=== PATIENT | male | born 1965 | race Caucasian/White ===

== ENCOUNTER 2016-12-14 19:13 | Emergency (ER) | payer OTHER ==
[~2016-12-14] VITALS: Ht 175.3 cm; Wt 84.5 kg
[2016-12-14 19:21] VITALS: BP 126/86; PULSE 89; RESP 18; TEMP 98.2; O2SAT 98
[2016-12-14] MEDS ORDERED: SODIUM CHLOR 0.9% 1000 ML INJ 1,000 ML IV SCH (20:14)
[2016-12-14] MEDS ORDERED: SODIUM CHLORIDE 0.9% FLUSH 10 ML FLUSH IV FLUSH PRN (20:15)
[2016-12-14 20:30] VITALS: BP 129/81; PULSE 78; RESP 14; O2SAT 98
[2016-12-14 20:39] LABS: AUTOMATED NEUTROPHIL # 8.7 TH/MM3 (1.8-7.7); BASOPHIL % 0.4 % (0.0-2.0); EOSINOPHIL # 0.2 TH/MM3 (0-0.4); EOSINOPHIL % 1.5 % (0.0-4.0); HEMATOCRIT 41.9 % (39.0-51.0); HEMO FLAGS DIFF FINAL; LYMPH % 17.8 % (9.0-44.0); LYMPHOCYTE # 2.2 TH/MM3 (1.0-4.8); MEAN CELL VOLUME 85.4 FL (80.0-100.0); MEAN CORPUSCULAR HEMOGLOBIN 29.1 PG (27.0-34.0); MEAN CORPUSCULAR HGB CONC 34.1 % (32.0-36.0); MONO % 8.8 % (0.0-8.0); NEUT % 71.5 % (16.0-70.0); PLATELET COUNT 292 TH/MM3 (150-450); RED CELL DISTRIBUTION WIDTH 12.6 % (11.6-17.2); WHITE BLOOD COUNT 12.2 TH/MM3 (4.0-11.0)
--- NOTE | 2016-12-14 20:42 | PD ---
HPI Chief Complaint: Abdominal Pain Time Seen by Provider: 20:13 Travel History International Travel<30 days: No Contact w/Intl Traveler<30days: No Traveled to known affect area: No History of Present Illness HPI Patient is a 51-year-old male presents with left lower quadrant abdominal pain for the past 4 days. Patient states that initially ate a peanut butter and jelly sandwich and had fairly abrupt onset of left lower quadrant abdominal pain. He went to an urgent care facility today and was told to come the emergency department for further evaluation. He denies any fever nausea vomiting diarrhea constipation. He states this never happened to him before. Denies any blood in the stool. States that occasionally he takes Tylenol ibuprofen at home but does not need any right now. PFSH Past Medical History Medical History: Denies Significant Hx Diminished Hearing: No Tetanus Vaccination: > 5 Years Influenza Vaccination: No Past Surgical History AICD: No Joint Replacement: No Pacemaker: No Other Surgery: Yes (INGUINAL HERNIA) Social History Alcohol Use: No Tobacco Use: No Substance Use: No Allergies-Medications (Allergen,Severity, Reaction): Coded Allergies: No Known Allergies (Unverified , 12/14/16) Reported Meds & Prescriptions Reported Meds & Active Scripts Active Bentyl (Dicyclomine HCl) 20 Mg Tab 20 Mg PO TID PRN Flagyl (Metronidazole) 500 Mg Tab 500 Mg PO BID 7 Days Cipro (Ciprofloxacin HCl) 500 Mg Tab 500 Mg PO BID 10 Days Zofran Odt (Ondansetron Odt) 4 Mg Tab 4 Mg SL Q6HR PRN Review of Systems Except as stated in HPI: all other systems reviewed are Neg Physical Exam Narrative GENERAL: Well-developed well-nourished no apparent distress SKIN: Focused skin assessment warm/dry. HEAD: Atraumatic. Normocephalic. EYES: Pupils equal and round. No scleral icterus. No injection or drainage. ENT: No nasal bleeding or discharge. Mucous membranes pink and moist. NECK: Trachea midline. No JVD. CARDIOVASCULAR: Regular rate and rhythm. No murmur appreciated. RESPIRATORY: No accessory muscle use. Clear to auscultation. Breath sounds equal bilaterally. GASTROINTESTINAL: Abdomen soft, moderately tender in the left lower quadrant, there is referred tenderness from the right lower quadrant without any rebound. Psoas and after signs negative. nondistended. Hepatic and splenic margins not palpable. No percussive tenderness. MUSCULOSKELETAL: No obvious deformities. No clubbing. No cyanosis. No edema. NEUROLOGICAL: Awake and alert. No obvious cranial nerve deficits. Motor grossly within normal limits. Normal speech. PSYCHIATRIC: Appropriate mood and affect; insight and judgment normal. Data Data Last Documented VS Vital Signs Date Time Temp Pulse Resp B/P Pulse Ox O2 Delivery O2 Flow Rate FiO2 12/14/16 22:00 80 14 128/84 99 Room Air 12/14/16 19:21 98.2 Orders Complete Blood Count With Diff (12/14/16 20:14) Comprehensive Metabolic Panel (12/14/16 20:14) Lipase (12/14/16 20:14) Urinalysis - C+S If Indicated (12/14/16 20:14) Ct Abd/Pel W Iv Contrast(Rout) (12/14/16 20:14) Iv Access Insert/Monitor (12/14/16 20:14) Ecg Monitoring (12/14/16 20:14) Oximetry (12/14/16 20:14) Sodium Chlor 0.9% 1000 Ml Inj (Ns 1000 M (12/14/16 20:14) Sodium Chloride 0.9% Flush (Ns Flush) (12/14/16 20:15) Iohexol 350 Inj (Omnipaque 350 Inj) (12/14/16 21:01) Ciprofloxacin (Cipro) (12/14/16 21:30) Metronidazole (Flagyl) (12/14/16 21:30) Labs Laboratory Tests Test 12/14/16 12/14/16 20:00 20:10 White Blood Count 12.2 TH/MM3 Red Blood Count 4.90 MIL/MM3 Hemoglobin 14.3 GM/DL Hematocrit 41.9 % Mean Corpuscular Volume 85.4 FL Mean Corpuscular Hemoglobin 29.1 PG Mean Corpuscular Hemoglobin 34.1 % Concent Red Cell Distribution Width 12.6 % Platelet Count 292 TH/MM3 Mean Platelet Volume 8.4 FL Neutrophils (%) (Auto) 71.5 % Lymphocytes (%) (Auto) 17.8 % Monocytes (%) (Auto) 8.8 % Eosinophils (%) (Auto) 1.5 % Basophils (%) (Auto) 0.4 % Neutrophils # (Auto) 8.7 TH/MM3 Lymphocytes # (Auto) 2.2 TH/MM3 Monocytes # (Auto) 1.1 TH/MM3 Eosinophils # (Auto) 0.2 TH/MM3 Basophils # (Auto) 0.0 TH/MM3 CBC Comment DIFF FINAL Differential Comment Sodium Level 139 MEQ/L Potassium Level 3.9 MEQ/L Chloride Level 103 MEQ/L Carbon Dioxide Level 29.0 MEQ/L Anion Gap 7 MEQ/L Blood Urea Nitrogen 20 MG/DL Creatinine 1.10 MG/DL Estimat Glomerular Filtration 70 ML/MIN Rate Random Glucose 87 MG/DL Calcium Level 9.2 MG/DL Total Bilirubin 0.5 MG/DL Aspartate Amino Transf 18 U/L (AST/SGOT) Alanine Aminotransferase 33 U/L (ALT/SGPT) Alkaline Phosphatase 116 U/L Total Protein 7.5 GM/DL Albumin 3.6 GM/DL Lipase 82 U/L Urine Color YELLOW Urine Turbidity CLEAR Urine pH 5.5 Urine Specific [place] 1.024 Urine Protein NEG mg/dL Urine Glucose (UA) NEG mg/dL Urine Ketones NEG mg/dL Urine Occult Blood SMALL Urine Nitrite NEG Urine Bilirubin NEG Urine Leukocyte Esterase NEG Urine RBC 0-3 /hpf Urine Squamous Epithelial 0-5 /hpf Cells Urine Mucus FEW /lpf Microscopic Urinalysis Comment CULT NOT INDICATED MDM Medical Decision Making Medical Screen Exam Complete: Yes Emergency Medical Condition: Yes Differential Diagnosis Appendicitis, diverticulitis, diverticular abscess. Narrative Course Patient was roomed emergency department, he appears well but certainly is minimally tender on his abdominal exam. He's never had diverticulitis before and will pursue a CAT scan to rule out complication from diverticulitis as well as to confirm the diagnosis. His labs are reassuring except for minimal elevation in white blood cell count. He was offered pain medicine several times in the emergency department and declined. Last 24 hours Impressions Abdomen/Pelvis CT 12/14/162013 Signed Impressions: Service Date/Time: Wednesday, December 14, 2016 20:38 - CONCLUSION: 1. Diverticulitis of the sigmoid colon. 2. Multiple hepatic low densities, likely benign. Moris Jeffries MD Discussed the diagnosis with the patient as well as the incidental finding of multiple hepatic low densities likely benign. I recommended the patient follow the latter finding up with his primary care physician and probably a repeat interim ultrasound to determine the nature of the densities in any progression. He verbalized understanding and agreement. Discussed symptomatically management of the diverticulitis returned ED criteria. He is stable for discharge at this time. Diagnosis Primary Impression: Diverticulitis Qualified Code: K57.32 - Diverticulitis of large intestine without perforation or abscess without bleeding Med/Other Pt SpecificInfo: Prescription(s) given Scripts Dicyclomine (Bentyl)20 Mg Tab20 Mg PO TID PRN (Bowel Management) #30 TAB Ref 0 Prov:Clayton Sepulveda MD 12/14/16 Metronidazole (Flagyl)500 Mg [id number] Mg PO BID 7 Days Ref 0 Prov:Clayton Sepulveda MD 12/14/16 Ciprofloxacin (Cipro)500 Mg [id number] Mg PO BID 10 Days Ref 0 Prov:Clayton Sepulveda MD 12/14/16 Ondansetron Odt (Zofran Odt)4 Mg Tab4 Mg SL Q6HR PRN (Nausea/Vomiting) #30 TAB Ref 0 Prov:Clayton Sepulveda MD 12/14/16 Disposition: 01 DISCHARGE HOME Condition: Stable Clayton Sepulveda MD December 14, 2016 20:42
[2016-12-14 20:48] LABS: CHLORIDE 103 MEQ/L (98-107); POTASSIUM 3.9 MEQ/L (3.5-5.1); SODIUM (NA) 139 MEQ/L (136-145)
[2016-12-14 20:52] LABS: ANION GAP 7 MEQ/L (5-15); BLOOD UREA NITROGEN 20 MG/DL (7-18)
[2016-12-14 20:53] LABS: BLOOD, URINE SMALL (NEG); GLUCOSE,URINE NEG (NEG); KETONE, URINE NEG (NEG); NITRITE,URINE NEG (NEG); PH, URINE 5.5 (5.0-8.5)
[2016-12-14 20:55] LABS: ALT (GPT) 33 U/L (12-78); AST (GOT) 18 U/L (15-37); GLOMERULAR FILTRATION RATE 70 ML/MIN (>89)
[2016-12-14 20:56] LABS: TOTAL BILIRUBIN ADULT 0.5 MG/DL (0.2-1.0)
[2016-12-14 20:58] LABS: ALKALINE PHOSPHATASE 116 U/L (45-117)
[2016-12-14 21:01] LABS: URINE COLOR YELLOW (YELLW/STRAW)
[2016-12-14] MEDS ORDERED: IOHEXOL 350 MG/ML 10 ML VIAL (for RAD DIAG) IV ONE (21:01)
[2016-12-14 21:02] LABS: MUCUS URINE FEW /lpf (OCC); SQUAMOUS EPITHELIAL CELL URINE 0-5 /hpf (0-5)
[2016-12-14 21:03] LABS: RBC, URINE 0-3 /hpf (0-3)
[2016-12-14 21:04] LABS: COMMENT (UR) CULT NOT INDICATED; CULTURE IF INDICATED CULT NOT INDICATED
--- NOTE | 2016-12-14 21:12 | RADHPO ---
EXAM DATE/TIME: 12/14/2016 20:38 [facility] COMPARISON: No previous studies available for comparison. INDICATIONS : Left lower abdominal pain. IV CONTRAST: 100 cc Omnipaque 350 (iohexol) IV ORAL CONTRAST: No oral contrast ingested. RADIATION DOSE: 14.20 CTDIvol (mGy) MEDICAL HISTORY : None SURGICAL HISTORY : None. ENCOUNTER: Initial ACUITY: 4 - 6 days PAIN SCALE: 6/10 LOCATION: Left lower quadrant TECHNIQUE: Volumetric scanning of the abdomen and pelvis was performed. Using automated exposure control and ad justment of the mA and/or kV according to patient size, radiation dose was kept as low as reasonably achievable to obtain optimal diagnostic quality images. FINDINGS: LOWER LUNGS: The visualized lower lungs are clear. LIVER: Homogeneous density. There is no dilation of the biliary tree. No calcified gallstones. Multiple lo w-density lesions. SPLEEN: Normal size without lesion. PANCREAS: Within normal limits. KIDNEYS: Normal in size and shape. There is no mass, stone or hydronephrosis. ADRENAL GLANDS: Within normal limits. VASCULAR: There is no aortic aneurysm. BOWEL/MESENTERY: Diverticulitis sigmoid colon without perforation or abscess.. There is no free intraperitoneal air o r fluid. ABDOMINAL WALL: Within normal limits. RETROPERITONEUM: There is no lymphadenopathy. BLADDER: No wall thickening or mass. REPRODUCTIVE: Within normal limits. INGUINAL: There is no lymphadenopathy or hernia. MUSCULOSKELETAL: Within normal limits for patient age. CONCLUSION: 1. Diverticulitis of the sigmoid colon. 2. Multiple hepatic low densities, likely benign. Moris Jeffries MD on December 14, 2016 at 21:08 Board Certified Radiologist. This report was verified electronically.
[2016-12-14] MEDS ORDERED: BENT20TA PO (21:24)
[2016-12-14] MEDS ORDERED: ZOFR4TAB3 SL (21:24)
[2016-12-14] MEDS ORDERED: CIPR-9 PO (21:24)
[2016-12-14] MEDS ORDERED: METR-1 PO (21:24)
[2016-12-14] MEDS ORDERED: metroNIDAZOLE 500 MG TAB PO ONE (21:30)
[2016-12-14] MEDS ORDERED: CIPROFLOXACIN 500 MG TAB PO ONE (21:30)
[2016-12-14 22:00] VITALS: BP 128/84; PULSE 80; RESP 14; O2SAT 99
== END 2016-12-14 22:24 | disposition home or self-care (01) ==
LOC: PHED 19:13
DX: K57.92 Diverticulitis of intestine, part unspecified, without perforation or abscess without bleeding (principal); Z79.899 Other long term (current) drug therapy
CPT/HCPCS: 74177; 80053; 81001; 83690; 85025; 96360; 99284; J7030; Q9967